=== PATIENT | male | born 1990 | race Caucasian/White ===

== ENCOUNTER 2019-07-09 17:45 | Emergency (ER) | payer MEDICAID, OTHER ==
[~2019-07-09] VITALS: Ht 172.7 cm; Wt 100.0 kg
[2019-07-09] MEDS ORDERED: IBUPROFEN 600MG TABLET PO ONE (21:30)
[2019-07-09] MEDS ORDERED: AMOXICILLIN/POTASSIUM CLAVULANATE 875/125MG TAB PO ONE (21:45)
[2019-07-09 21:56] VITALS: BP 115/72
== END 2019-07-09 21:56 | disposition home or self-care (01) ==
LOC: ER 17:45
DX: K02.9 Dental caries, unspecified (principal); R22.0 Localized swelling, mass and lump, head
CPT/HCPCS: 99283